=== PATIENT | male | born 1985 | race Hispanic/Latino ===

== ENCOUNTER 2022-10-03 21:01 | Emergency (ER) | payer BC ==
[~2022-10-03] VITALS: Ht 170.2 cm; Wt 142.0 kg
[~2022-10-03 21:01] MED LIST: AEC81 PO; ATEN25TA PO; ATEN50TA PO; CITA-107 PO; PRAV10TA39 PO
[2022-10-03 21:30] LABS: BASOPHILS % (AUTO) 0.5 % (0.0-5.0); EOSINOPHILS % (AUTO) 1.6 % (0.0-8.0); HEMATOCRIT 43.9 % (42-54); LYMPHOCYTES % (AUTO) 21.1 % (21.0-51.0); MEAN CORPUSCULAR HEMOGLOBIN 30.4 pg (27.0-33.0); MEAN CORPUSCULAR HGB CONC 33.9 g/dL (32.0-36.0); MEAN CORPUSCULAR VOLUME 89.6 fL (79-99); MONOCYTES % (AUTO) 6.2 % (3.0-13.0); NEUTROPHILS % (AUTO) 69.9 % (40.0-77.0); PLATELET COUNT (AUTO) 325 K/uL (130-400); RED CELL DISTRIBUTION WIDTH 12.3 % (11.0-15.5); WHITE BLOOD COUNT (AUTO) 12.9 K/uL (4.8-10.8)
[2022-10-03] MEDS ORDERED: METOPROLOL TARTRATE 1 MG/ML 5ML VIAL IV ONE (21:30)
[2022-10-03] MEDS ORDERED: LORAZEPAM 2 MG/ML 1 ML VIAL IVP ONE (21:30)
[2022-10-03 21:41] LABS: CREATININE 1.1 mg/dL (0.5-1.5); POTASSIUM 4.1 mmol/L (3.5-5.1)
[2022-10-03 21:51] LABS: ALBUMIN 3.9 g/dL (3.5-5.0); TOTAL PROTEIN, SERUM 8.3 g/dL (6.0-8.3)
[2022-10-03 22:03] LABS: THYROID STIMULATING HORMONE 4.29 uIU/mL (0.36-3.74)
[2022-10-03 23:56] VITALS: BP 128/83
== END 2022-10-04 00:11 | disposition home or self-care (01) ==
LOC: EDH 21:01
DX: F41.9 Anxiety disorder, unspecified (principal); R00.0 Tachycardia, unspecified; I10 Essential (primary) hypertension; Z79.899 Other long term (current) drug therapy
CPT/HCPCS: 99284; 96374; 96375; 84443; 84484; 80053; 85025; 84439; 36415; 93005; J3490; J2060

== ENCOUNTER 2023-02-27 20:45 | Observation (INO) | payer BC ==
[~2023-02-27] VITALS: Ht 170.2 cm; Wt 145.5 kg
[2023-02-27 21:10] LABS: BASOPHILS # (AUTO) 0.06 K/uL (0.00-0.20); BASOPHILS % (AUTO) 0.5 % (0.0-5.0); EOSINOPHILS # (AUTO) 0.19 K/uL (0.00-0.70); EOSINOPHILS % (AUTO) 1.5 % (0.0-8.0); HEMATOCRIT 41.8 % (42-54); IMMATURE GRANULOCYTE ABSOLUTE 0.09 K/uL (0-1); LYMPHOCYTES # (AUTO) 3.2 K/uL (1.0-4.8); LYMPHOCYTES % (AUTO) 24.4 % (21.0-51.0); MEAN CORPUSCULAR HEMOGLOBIN 31.2 pg (27.0-33.0); MEAN CORPUSCULAR HGB CONC 34.4 g/dL (32.0-36.0); MEAN CORPUSCULAR VOLUME 90.7 fL (79-99); MONOCYTES # (AUTO) 0.9 K/uL (0.1-1.0); MONOCYTES % (AUTO) 7.1 % (3.0-13.0); NEUTROPHILS # (AUTO) 8.6 K/uL (1.8-7.7); NEUTROPHILS % (AUTO) 65.8 % (40.0-77.0); PLATELET COUNT (AUTO) 312 K/uL (130-400); RED BLOOD CELL COUNT(AUTO) 4.61 MIL/uL (4.50-6.20); RED CELL DISTRIBUTION WIDTH 12.2 % (11.0-15.5)
[2023-02-27 21:17] LABS: POTASSIUM 3.9 mmol/L (3.5-5.1)
[2023-02-27 21:19] LABS: INR < 0.93 (0.85-1.15); PROTHROMBIN TIME 10.5 SEC (9.6-11.6)
[2023-02-27 21:20] LABS: PARTIAL THROMBOPLASTIN TIME 30.6 SEC (26.3-35.5)
[2023-02-27 21:26] LABS: ALBUMIN 3.8 g/dL (3.5-5.0); BILIRUBIN,TOTAL 0.5 mg/dL (0.2-1.0)
[2023-02-27] MEDS ORDERED: METOPROLOL TARTRATE 1 MG/ML 5ML VIAL IV ONE (22:30)
[2023-02-27] MEDS: MAGNESIUM 2GM PREMIX 50ML 50 ML IV SCH (22:33)
[2023-02-27] MEDS ORDERED: ROSU10TA28 PO (22:55)
[2023-02-27] MEDS ORDERED: OLME20TA22 PO (22:57)
[2023-02-27] MEDS ORDERED: BUSP5TAB3 PO (22:58)
[2023-02-27] MEDS ORDERED: KCL 20 MEQ ERTAB PO PRN (23:30)
[2023-02-27] MEDS ORDERED: MAGNESIUM 2GM PREMIX 50ML 50 ML IV PRN (23:30)
[2023-02-27] MEDS ORDERED: ACETAMINOPHEN 325 MG TAB PO PRN ×2 (23:30)
[2023-02-27] MEDS ORDERED: POTASSIUM CHLORIDE 20MEQ/100ML 100 ML IV PRN (23:30)
[2023-02-27] MEDS ORDERED: ONDANSETRON 4MG INJ IV PRN (23:30)
[2023-02-27] MEDS ORDERED: POTASSIUM CHLORIDE 10% ELIXIR 20 MEQ/15 ML UDCUP PO PRN (23:30)
[2023-02-27] MEDS ORDERED: NITROGLYCERIN 1GM OINT 1 INCH/1GM TD ONE (23:30)
[2023-02-28 00:56] VITALS: BP 149/86; PULSE 102; RESP 22; O2SAT 97
[2023-02-28] MEDS ORDERED: BUSPIRONE HCL 5 MG TABLET PO PRN (03:30)
[2023-02-28 03:50] VITALS: BP 124/59; PULSE 105; RESP 20
[2023-02-28 04:01] VITALS: TEMP 98.4
[2023-02-28 05:25] LABS: BASOPHILS # (AUTO) 0.06 K/uL (0.00-0.20); BASOPHILS % (AUTO) 0.6 % (0.0-5.0); EOSINOPHILS # (AUTO) 0.18 K/uL (0.00-0.70); EOSINOPHILS % (AUTO) 1.9 % (0.0-8.0); HEMATOCRIT 39.8 % (42-54); IMMATURE GRANULOCYTE ABSOLUTE 0.07 K/uL (0-1); LYMPHOCYTES # (AUTO) 2.5 K/uL (1.0-4.8); LYMPHOCYTES % (AUTO) 26.1 % (21.0-51.0); MEAN CORPUSCULAR HEMOGLOBIN 31.3 pg (27.0-33.0); MEAN CORPUSCULAR HGB CONC 33.7 g/dL (32.0-36.0); MONOCYTES # (AUTO) 0.8 K/uL (0.1-1.0); MONOCYTES % (AUTO) 8.6 % (3.0-13.0); NEUTROPHILS # (AUTO) 5.8 K/uL (1.8-7.7); NEUTROPHILS % (AUTO) 62.1 % (40.0-77.0); PLATELET COUNT (AUTO) 282 K/uL (130-400); RED BLOOD CELL COUNT(AUTO) 4.28 MIL/uL (4.50-6.20); RED CELL DISTRIBUTION WIDTH 12.3 % (11.0-15.5); WHITE BLOOD COUNT (AUTO) 9.4 K/uL (4.8-10.8)
[2023-02-28 05:30] LABS: HEMOGLOBIN A1C 5.7 % (4.0-6.0)
[2023-02-28 05:46] LABS: ALBUMIN 3.6 g/dL (3.5-5.0); BILIRUBIN,TOTAL 0.5 mg/dL (0.2-1.0); CREATININE 0.8 mg/dL (0.5-1.5); POTASSIUM 4.4 mmol/L (3.5-5.1); THYROID STIMULATING HORMONE 2.98 uIU/mL (0.36-3.74); TOTAL PROTEIN, SERUM 7.3 g/dL (6.0-8.3)
[2023-02-28 08:00] VITALS: BP 134/64; PULSE 103; RESP 20; O2SAT 100
[2023-02-28] MEDS ORDERED: ASPIRIN 81MG CHEW TAB PO SCH (09:00)
[2023-02-28] MEDS ORDERED: FAMOTIDINE 20MG TAB PO SCH (09:00)
[2023-02-28] MEDS ORDERED: ENOXAPARIN SODIUM 40 MG/0.4 ML SYRINGE SQ SCH (09:00)
[2023-02-28] MEDS ORDERED: METOPROLOL TARTRATE 50 MG TAB PO SCH (09:30)
[2023-02-28] MEDS: MAGNESIUM 2GM PREMIX 50ML 50 ML IV SCH (10:02)
[2023-02-28 10:25] VITALS: PULSE 104; RESP 18; O2SAT 96
[2023-02-28 11:58] VITALS: BP 120/71; PULSE 105; RESP 20
[2023-02-28] MEDS ORDERED: METO-409 PO (12:26)
[2023-02-28] MEDS ORDERED: METOPROLOL SUCCINATE 50 MG TAB.SR.24H PO SCH (21:00)
[2023-02-28] MEDS ORDERED: Rosuvastatin Calcium 10 MG PO SCH (21:00)
== END 2023-02-28 14:42 | disposition home or self-care (01) ==
LOC: EDH 20:45 → EDHIP 23:30 → 3DH 23:56
PROVIDERS: ADMIT Hospitalist; ATTEND Hospitalist
DX: R07.89 Other chest pain (principal); R00.0 Tachycardia, unspecified; E87.8 Other disorders of electrolyte and fluid balance, not elsewhere classified; R73.9 Hyperglycemia, unspecified; I10 Essential (primary) hypertension; I49.9 Cardiac arrhythmia, unspecified; E66.01 Morbid (severe) obesity due to excess calories; G47.33 Obstructive sleep apnea (adult) (pediatric); E78.5 Hyperlipidemia, unspecified; E83.42 Hypomagnesemia; F41.9 Anxiety disorder, unspecified; Z68.43 Body mass index [BMI] 50.0-59.9, adult; Z79.82 Long term (current) use of aspirin
CPT/HCPCS: 96365; 96375; 99285; 80050 ×2; 83735; 84484 ×3; 85610; 85730; 36415 ×2; 71045; 93005; 96372; 96366; 83036; 80061; 93306; 93356; G0378 ×14; J3475 ×2; J3490; J1650; 80053; 84443; 85025